=== PATIENT | male | born 1945 | race African-American/Black ===

== ENCOUNTER 2021-03-04 13:21 | Inpatient (IN) | payer MEDICARE, MEDICAID ==
[~2021-03-04] VITALS: Ht 172.7 cm; Wt 88.3 kg
[2021-03-04 14:37] LABS: BASOPHILS % 1.3 % (0.0-2.0); EOSINOPHILS % 1.2 % (0.0-5.0); HEMATOCRIT. 38.4 % (42.0-52.0); HEMOGLOBIN. 12.7 g/dL (14.0-18.0); LYMPHOCYTES % 15.5 % (20.0-50.0); MEAN CORPUSCULAR HEMOGLOBIN 26.7 pg (28.0-32.0); MEAN PLATELET VOLUME 9.1 fl (7.4-10.4); MONOCYTES % 9.2 % (2.0-8.0); NEUTROPHILS % 72.8 % (40.0-76.0); PLATELET 138 x1000/uL (130-400); RED BLOOD CELL COUNT 4.73 mill/uL (4.7-6.1); RED CELL DISTRIBUTION WIDTH 17.7 % (11.6-14.6)
[2021-03-04 14:43] LABS: CHLORIDE 110 mEq/L (98-107)
[2021-03-04 14:45] LABS: INR 1.1; PROTHROMBIN TIME 11.5 sec (9.6-11.0)
[2021-03-04] MEDS ORDERED: LIDOCAINE HCL 1% 30ML VIAL (10MG/ML) ONE ×2 (16:54→17:01)
[2021-03-04] MEDS ORDERED: MIDAZOLAM HCL 5 MG/5 ML VIAL ONE (16:56)
[2021-03-04] MEDS ORDERED: FENTANYL CITRATE/PF 50MCG/ML 5ML VIAL ONE (16:56)
[2021-03-04] MEDS ORDERED: IOHEXOL-300 100 ML BOTTLE ONE (17:00)
[2021-03-04] MEDS ORDERED: IODIXANOL 320MG/ML 100 ML BOTTLE IV ONE (17:01)
[2021-03-04] MEDS ORDERED: CEFAZOLIN 1000MG PREMIX 50 ML IV ONE (17:08)
[2021-03-04] MEDS ORDERED: HEPARIN 1000 UNITS/ML 10ML ONE (17:09)
[2021-03-04 17:45] VITALS: BP 159/74
[2021-03-04 18:00] VITALS: BP 159/74
[2021-03-04] MEDS ORDERED: ERGO1250 PO (18:27)
[2021-03-04] MEDS ORDERED: TAMSULOSIN (18:27)
[2021-03-04] MEDS ORDERED: BACL20TA PO (18:27)
[2021-03-04] MEDS ORDERED: ISRA5CAP PO (18:27)
[2021-03-04] MEDS ORDERED: FOLI-43 PO (18:27)
[2021-03-04] MEDS ORDERED: TEMA30CA PO (18:27)
[2021-03-04] MEDS ORDERED: FEBU40TA3 PO (18:27)
[2021-03-04] MEDS ORDERED: DOXE50CA4 PO (18:27)
[2021-03-04] MEDS ORDERED: DUTA0.5C37 PO (18:27)
[2021-03-04] MEDS ORDERED: ESOM20CA37 PO (18:27)
[2021-03-04] MEDS ORDERED: FINA5TAB11 PO (18:27)
[2021-03-04 20:00] VITALS: BP 171/98
[2021-03-04] MEDS ORDERED: ACETAMINOPHEN 325MG TABLET PO PRN (21:00)
[2021-03-04] MEDS ORDERED: ONDANSETRON HCL 4MG/2ML INJ IV PRN (21:00)
[2021-03-04] MEDS ORDERED: SODIUM CHLORIDE 0.9% 1,000 ML IV SCH (21:00)
[2021-03-04] MEDS ORDERED: ZOLPIDEM TARTRATE 5MG TABLET PO PRN (21:00)
[2021-03-04] MEDS: CLONIDINE 0.1MG TABLET PO PRN (21:11)
[2021-03-04] MEDS: MORPHINE SULFATE 2 MG/ML CPJ (NOT FOR IM USE) IV PRN (21:12)
[2021-03-04 22:00] VITALS: BP 170/90
[2021-03-04 22:24] LABS: HEMATOCRIT 42.1 % (42.0-52.0); HEMOGLOBIN 13.2 g/dL (14.0-18.0)
[2021-03-05] VITALS (9 sets, daily range): BP systolic 137–179; BP diastolic 72–92
[2021-03-05] MEDS: CLONIDINE 0.1MG TABLET PO PRN (03:54)
[2021-03-05] MEDS: MORPHINE SULFATE 2 MG/ML CPJ (NOT FOR IM USE) IV PRN (04:40)
[2021-03-05] MEDS ORDERED: HYDRALAZINE 20MG/ML VIAL IV PRN (05:45)
[2021-03-05] MEDS ORDERED: PANTOPRAZOLE 40MG DR TABLET PO SCH (06:50)
[2021-03-05 07:32] LABS: HEMATOCRIT 40.9 % (42.0-52.0); MEAN CORPUSCULAR HEMOGLOBIN 25.6 pg (28.0-32.0); MEAN CORPUSCULAR VOLUME 80.4 fL (80.0-94.0); PLATELET 131 x1000/uL (130-400); RED BLOOD CELL COUNT 5.08 mill/uL (4.7-6.1); RED CELL DISTRIBUTION WIDTH 18.2 % (11.6-14.6)
[2021-03-05 07:43] LABS: CHLORIDE 110 mEq/L (98-107)
[2021-03-05] MEDS ORDERED: TAMSULOSIN HCL 0.4MG SR CAPSULE PO SCH (09:00)
[2021-03-05] MEDS ORDERED: FINASTERIDE 5MG TABLET PO SCH (09:00)
[2021-03-05] MEDS ORDERED: DUTASTERIDE 0.5MG CAPSULE PO SCH (09:00)
[2021-03-05] MEDS ORDERED: ASPI-1406 MT (15:12)
[2021-03-05] MEDS ORDERED: CLOP-31 MT (15:13)
== END 2021-03-05 17:22 | disposition hospice, home (50) | DRG 253 ==
LOC: ER 13:21 → 3WST 14:38 → EDBEDREQ 14:47 → EDBEDREQTM 14:47
PROVIDERS: ADMIT Internal Medicine; ATTEND Internal Medicine
PROC: 047H3DZ Dilation of Right External Iliac Artery with Intraluminal Device, Percutaneous Approach (ICD-10-PCS; principal; 2021-03-04)
DX: I77.72 Dissection of iliac artery (principal); I74.5 Embolism and thrombosis of iliac artery; E44.1 Mild protein-calorie malnutrition; F31.9 Bipolar disorder, unspecified; E78.5 Hyperlipidemia, unspecified; F17.210 Nicotine dependence, cigarettes, uncomplicated; I12.9 Hypertensive chronic kidney disease with stage 1 through stage 4 chronic kidney disease, or unspecified chronic kidney disease; I25.10 Atherosclerotic heart disease of native coronary artery without angina pectoris; I25.2 Old myocardial infarction; I35.1 Nonrheumatic aortic (valve) insufficiency; M10.9 Gout, unspecified; Z20.822 Contact with and (suspected) exposure to COVID-19; M19.90 Unspecified osteoarthritis, unspecified site; I73.9 Peripheral vascular disease, unspecified; J44.9 Chronic obstructive pulmonary disease, unspecified; N18.2 Chronic kidney disease, stage 2 (mild); N40.0 Benign prostatic hyperplasia without lower urinary tract symptoms; Z85.038 Personal history of other malignant neoplasm of large intestine; Z86.73 Personal history of transient ischemic attack (TIA), and cerebral infarction without residual deficits; Z90.49 Acquired absence of other specified parts of digestive tract; Z93.3 Colostomy status; Z80.0 Family history of malignant neoplasm of digestive organs; Z86.19 Personal history of other infectious and parasitic diseases; B19.20 Unspecified viral hepatitis C without hepatic coma; Z68.29 Body mass index [BMI] 29.0-29.9, adult
CPT/HCPCS: 36415; 37221; 75710; 80053; 85014; 85018; 85025; 85027; 85347; 86850; 86900; 87426; 99285; C1760; C1769; C1876; C1893; J0360; J0690; J1644; J2250; J2270; J3010; J3490; Q9967

== ENCOUNTER 2022-02-07 09:50 | Inpatient (IN) | payer MEDICARE, MEDICAID ==
[~2022-02-07] VITALS: Ht 170.2 cm; Wt 78.0 kg
[~2022-02-07 09:50] MED LIST: ASPI-1406 MT; BACL20TA PO; CLOP-31 MT; DOXE50CA4 PO; DUTA0.5C37 PO; ERGO1250 PO; ESOM20CA37 PO; FEBU40TA3 PO; FINA5TAB11 PO; FOLI-43 PO; ISRA5CAP PO; TAMSULOSIN; TEMA30CA PO
[2022-02-07 10:17] LABS: HEMOGLOBIN. 13.1 g/dL (14.0-18.0); MEAN CORPUSCULAR HEMOGLOBIN 25.9 pg (28.0-32.0); MEAN CORPUSCULAR VOLUME 78.9 fL (80.0-94.0); MEAN PLATELET VOLUME 8.7 fl (7.4-10.4); PLATELET 272 x1000/uL (130-400); RED BLOOD CELL COUNT 5.07 mill/uL (4.7-6.1); RED CELL DISTRIBUTION WIDTH 18.3 % (11.6-14.6)
[2022-02-07] MEDS ORDERED: BUPIVACAINE HCL/PF 0.5% (5MG/ML) 10ML ONE (10:50)
[2022-02-07] MEDS ORDERED: LIDOCAINE HCL 1% 10 MG/ML 10ML VIAL ONE ×2 (10:50→11:46)
[2022-02-07] MEDS ORDERED: HEPARIN SODIUM 1,000 UNIT/1ML VIAL IV ONE (10:51)
[2022-02-07] MEDS ORDERED: BACITRACIN 15GM TUBE TOP ONE (10:51)
[2022-02-07] MEDS ORDERED: POLYMYXIN B SULFATE 500000 UNITS/VIAL ONE (10:52)
[2022-02-07] MEDS ORDERED: THROMBIN (BOVINE) 5000 UNITS/VIAL TOP ONE (10:57)
[2022-02-07] MEDS ORDERED: SODIUM CHLORIDE 0.9% 1,000 ML IV SCH (11:00)
[2022-02-07 11:04] LABS: PLATELET ESTIMATE NORMAL
[2022-02-07 11:26] LABS: INR 1.1; PARTIAL THROMBOPLASTIN TIME 27.9 sec (23.4-31.0); PROTHROMBIN TIME 11.6 sec (9.6-11.0)
[2022-02-07 11:45] LABS: CHLORIDE 114 mEq/L (98-107)
[2022-02-07] MEDS ORDERED: PROPOFOL 200MG/20ML VIAL IV ONE (11:46)
[2022-02-07] MEDS ORDERED: ROCURONIUM BROMIDE 10MG/ML VIAL 5ML IV ONE (11:46)
[2022-02-07] MEDS ORDERED: SUCCINYLCHOLINE CHLORIDE 200MG/10ML IV ONE (11:46)
[2022-02-07] MEDS ORDERED: ONDANSETRON HCL 4MG/2ML INJ ONE (11:46)
[2022-02-07] MEDS ORDERED: DEXAMETHASONE 4MG/ML 1ML VIAL ONE (11:46)
[2022-02-07] MEDS ORDERED: FENTANYL CITRATE/PF 50MCG/ML 2ML VIAL ONE (11:47)
[2022-02-07] MEDS ORDERED: MIDAZOLAM HCL 2 MG/2 ML VIAL ONE (11:47)
[2022-02-07] MEDS ORDERED: GLYCOPYRROLATE 0.2 MG/ML 2ML VIAL ONE ×2 (11:47)
[2022-02-07] MEDS ORDERED: TAMS-11 PO (11:58)
[2022-02-07] MEDS ORDERED: AMLO10TA80 PO (12:05)
[2022-02-07] MEDS ORDERED: HYDR-4135 PO (12:05)
[2022-02-07] MEDS ORDERED: TRAM50TA3 PO (12:05)
[2022-02-07] MEDS ORDERED: NALOXONE HCL 0.4MG/ML VIAL IV PRN (12:15)
[2022-02-07] MEDS ORDERED: LABETALOL 5MG/ML SYR 20 MG/4 ML SYRINGE IV PRN (12:45)
[2022-02-07] MEDS ORDERED: ONDANSETRON HCL 4MG/2ML INJ IV PRN ×2 (12:45→20:15)
[2022-02-07] MEDS ORDERED: MEPERIDINE HCL/PF 25MG/ML CPJ IV PRN (12:45)
[2022-02-07] MEDS ORDERED: NEOSTIGMINE METHYLSULFATE 1MG/ML 10 ML VIAL ONE ×2 (12:52→13:00)
[2022-02-07] MEDS ORDERED: HYDROMORPHONE HCL/PF 2MG/ML CPJ ONE (12:54)
[2022-02-07] MEDS: HYDROMORPHONE HCL/PF 2MG/ML CPJ IV PRN ×3 (16:27→18:04)
[2022-02-07 17:50] VITALS: BP 167/78
[2022-02-07 19:30] VITALS: BP 156/88
[2022-02-07] MEDS ORDERED: ACETAMINOPHEN 325MG TABLET PO PRN ×2 (20:15)
[2022-02-07] MEDS ORDERED: ZOLPIDEM TARTRATE 5MG TABLET PO PRN (20:15)
[2022-02-07] MEDS ORDERED: MAGNESIUM/ALUMINUM HYDROXIDE/SIMETHICONE 30ML UDC PO PRN (20:15)
[2022-02-07] MEDS ORDERED: GUAIFENESIN 200MG/10ML SUGAR FREE UDC PO PRN (20:15)
[2022-02-07] MEDS ORDERED: IPRATROPIUM/ALBUTEROL 0.5-3(2.5)MG/3ML NEB NEB PRN (20:15)
[2022-02-07] MEDS ORDERED: CLONIDINE 0.1MG TABLET PO PRN (20:15)
[2022-02-07] MEDS ORDERED: DOCUSATE SODIUM 100MG CAPSULE PO PRN (20:15)
[2022-02-07] MEDS ORDERED: NA PHOS,M-B/NA PHOS,DI-BA ENEMA 118ML PR PRN (20:15)
[2022-02-07 21:00] VITALS: BP 176/73
[2022-02-07] MEDS: TAMSULOSIN HCL 0.4MG SR CAPSULE PO SCH (21:34)
[2022-02-07] MEDS: AMLODIPINE 10MG TABLET PO SCH (21:34)
[2022-02-07] MEDS: SODIUM CHLORIDE 0.9% 1,000 ML IV SCH (21:35)
[2022-02-07] MEDS: FOLIC ACID 1MG TABLET PO SCH (21:35)
[2022-02-07] MEDS: FAMOTIDINE 20MG TABLET PO SCH (21:36)
[2022-02-07 23:05] VITALS: BP 181/78
[2022-02-07] MEDS: HYDROCODONE/ACETAMINOPHEN 5/325MG TABLET PO PRN (23:07)
[2022-02-07 23:26] LABS: HEMATOCRIT 39.8 % (42.0-52.0); HEMOGLOBIN 12.8 g/dL (14.0-18.0); PLATELET 286 x1000/uL (130-400); RED BLOOD CELL COUNT 4.91 mill/uL (4.7-6.1); RED CELL DISTRIBUTION WIDTH 18.9 % (11.6-14.6)
[2022-02-08] VITALS (8 sets, daily range): BP systolic 131–165; BP diastolic 50–78
[2022-02-08] MEDS: HYDRALAZINE HCL 50MG TABLET PO SCH ×5 (00:43→23:55)
[2022-02-08] MEDS: MORPHINE SULFATE 4 MG/ML CPJ (NOT FOR IM USE) IV PRN ×2 (01:12→10:02)
[2022-02-08] MEDS: SODIUM CHLORIDE 0.9% 1,000 ML IV SCH ×2 (06:07→17:35)
[2022-02-08 08:39] LABS: EOSINOPHILS % 0.1 % (0.0-5.0); HEMATOCRIT. 37.7 % (42.0-52.0); LYMPHOCYTES % 14.8 % (20.0-50.0); MEAN CORPUSCULAR HEMOGLOBIN 25.5 pg (28.0-32.0); MONOCYTES % 5.4 % (2.0-8.0); NEUTROPHILS % 78.7 % (40.0-76.0); PLATELET 256 x1000/uL (130-400); RED BLOOD CELL COUNT 4.71 mill/uL (4.7-6.1); RED CELL DISTRIBUTION WIDTH 18.9 % (11.6-14.6)
[2022-02-08 08:41] LABS: CHLORIDE 109 mEq/L (98-107)
[2022-02-08] MEDS: FAMOTIDINE 20MG TABLET PO SCH (10:01)
[2022-02-08] MEDS: DUTASTERIDE 0.5MG CAPSULE PO SCH (10:01)
[2022-02-08] MEDS: FOLIC ACID 1MG TABLET PO SCH (10:01)
[2022-02-08] MEDS: TAMSULOSIN HCL 0.4MG SR CAPSULE PO SCH ×2 (10:02→20:58)
[2022-02-08] MEDS: AMLODIPINE 10MG TABLET PO SCH (10:02)
[2022-02-08] MEDS ORDERED: SODIUM POLYSTYRENE SULFONATE 15 G/60 ML BOT PO NR (11:00)
[2022-02-08] MEDS: CITRIC ACID/SODIUM CITRATE SOLN 15ML UDC PO SCH ×2 (12:27→17:34)
[2022-02-08] MEDS: HYDROCODONE/ACETAMINOPHEN 5/325MG TABLET PO PRN ×2 (18:16→23:54)
[2022-02-09] VITALS: BP 148/61
[2022-02-09] MEDS: MORPHINE SULFATE 4 MG/ML CPJ (NOT FOR IM USE) IV PRN ×2 (02:27→09:23)
[2022-02-09] MEDS: SODIUM CHLORIDE 0.9% 1,000 ML IV SCH (03:07)
[2022-02-09 04:00] VITALS: BP 153/74
[2022-02-09] MEDS: HYDRALAZINE HCL 50MG TABLET PO SCH (06:05)
[2022-02-09] MEDS: HYDROCODONE/ACETAMINOPHEN 5/325MG TABLET PO PRN (06:11)
[2022-02-09 07:03] LABS: HEMATOCRIT. 29.4 % (42.0-52.0); HEMOGLOBIN. 9.7 g/dL (14.0-18.0); MEAN CORPUSCULAR HEMOGLOBIN 25.6 pg (28.0-32.0); MEAN CORPUSCULAR VOLUME 77.9 fL (80.0-94.0); MEAN PLATELET VOLUME 8.9 fl (7.4-10.4); PLATELET 176 x1000/uL (130-400); RED BLOOD CELL COUNT 3.78 mill/uL (4.7-6.1)
[2022-02-09 07:40] LABS: CHLORIDE 113 mEq/L (98-107)
[2022-02-09 08:00] VITALS: BP 89/59
[2022-02-09] MEDS: TAMSULOSIN HCL 0.4MG SR CAPSULE PO SCH (09:22)
[2022-02-09] MEDS: FOLIC ACID 1MG TABLET PO SCH (09:23)
[2022-02-09] MEDS: DUTASTERIDE 0.5MG CAPSULE PO SCH (09:24)
[2022-02-09] MEDS: AMLODIPINE 10MG TABLET PO SCH (09:24)
[2022-02-09] MEDS: FAMOTIDINE 20MG TABLET PO SCH (09:24)
[2022-02-09] MEDS: CITRIC ACID/SODIUM CITRATE SOLN 15ML UDC PO SCH (09:33)
[2022-02-09 09:56] LABS: PLATELET ESTIMATE NORMAL
[2022-02-09 10:23] VITALS: BP 137/69
== END 2022-02-09 10:42 | disposition home health service (06) | DRG 252 ==
LOC: OR 09:50 → 6EST 18:49
PROVIDERS: ADMIT Internal Medicine; ATTEND Internal Medicine
PROC: 04CK0ZZ Extirpation of Matter from Right Femoral Artery, Open Approach (ICD-10-PCS; principal; 2022-02-07)
PROC: 04PY0DZ Removal of Intraluminal Device from Lower Artery, Open Approach (ICD-10-PCS; 2022-02-07)
DX: I70.201 Unspecified atherosclerosis of native arteries of extremities, right leg (principal); N17.0 Acute kidney failure with tubular necrosis; F31.9 Bipolar disorder, unspecified; I10 Essential (primary) hypertension; Z20.822 Contact with and (suspected) exposure to COVID-19; Z66 Do not resuscitate; F17.210 Nicotine dependence, cigarettes, uncomplicated; Z60.2 Problems related to living alone; N40.0 Benign prostatic hyperplasia without lower urinary tract symptoms; Z85.038 Personal history of other malignant neoplasm of large intestine; Z90.49 Acquired absence of other specified parts of digestive tract; Z93.3 Colostomy status; Z79.82 Long term (current) use of aspirin; Z79.899 Other long term (current) drug therapy
CPT/HCPCS: 36415; 80048; 80053; 83735; 84100; 85025; 85027; 87426; 88304; 88311; 93005; 93922; C1887; C1893; C9803; J0330; J1100; J1170; J1644; J2250; J2270; J2405; J2704; J2710; J3010; J3490; J7030